=== PATIENT | male | born 1995 | race Caucasian/White ===

== ENCOUNTER 2016-11-05 22:18 | Emergency (ER) | payer BC ==
[~2016-11-05] VITALS: Ht 177.8 cm; Wt 79.4 kg
[2016-11-05] MEDS ORDERED: NKM (22:29)
[2016-11-05 22:33] VITALS: BP 140/89
[2016-11-05] MEDS ORDERED: AUGMENTIN 875-1 EAC1 ORAL (23:10)
[2016-11-05] MEDS ORDERED: IBUPROFEN600 MG ORAL (23:10)
[2016-11-05 23:15] VITALS: BP 132/84
[2016-11-05] MEDS ORDERED: Augmentin 875mg Tab ORAL ONE (23:15)
[2016-11-05] MEDS ORDERED: Ketorolac 60mg Inj IM ONE (23:15)
[2016-11-05 23:20] VITALS: BP 140/89
--- NOTE | 2016-11-05 23:43 | Emergency Room Report ---
History of Present Illness General Chief Complaint: Earache Source: Patient Present Illness HPI 21YOM walk-in with acute 1 day left ear pain after [place] [email or web address] Denies fever/chills, throat pain Doesnt use Qtips Denies headache, neck pain Denies frequent ear infections Allergies: Coded Allergies: No Known Allergies (Unverified , 11/05/16) Patient History Past Medical History: none Past Surgical History: none Pertinent Family History: none Social History: Denies: smoking, alcohol use, drug use Immunizations: UTD Reviewed Nursing Documentation: PMH: Agreed, PSxH: Agreed Nursing Documentation-PMH Past Medical History: No History, Except For Hx Cardiac Problems: No - PNA Review of Systems All Other Systems: negative except mentioned in HPI Physical Exam Vital Signs Date Time Temp Pulse Resp B/P (MAP) Pulse Ox O2 Delivery O2 Flow Rate FiO2 11/05/16 22:26 97.3 67 16 140/89 100 Room Air Sp02 EP Interpretation: reviewed, normal General Appearance: normal inspection, well appearing, no apparent distress, alert Head: atraumatic ENT: normal ENT inspection, hearing grossly normal, normal pharynx, no angioedema, normal voice, other - Multiple cerumen in both ears even after irrigation by tech. Unable to visualize TMs bilaterally Neck: normal inspection, full range of motion, supple, no bony tend Respiratory: normal inspection, lungs clear, normal breath sounds, no respiratory distress, no retraction, no wheezing Cardiovascular #1: regular rate, rhythm, no edema Gastrointestinal: normal inspection, normal bowel sounds, non tender, soft, no guarding, no hernia Genitourinary: no CVA tenderness Musculoskeletal: normal inspection, back normal, normal range of motion, Jean' s Sign negative Neurologic: normal inspection, alert, oriented x3, responsive, party plan sales unit advisor III-XII nml as tested, motor strength/tone normal, speech normal Psychiatric: normal inspection, judgement/insight normal, mood/affect normal Skin: normal inspection, normal color, no rash Medical Decision Making Diagnostic Impression: Primary Impression: Earache, left Additional Impression: Impacted cerumen of both ears ER Course Possible left otitis media from recent jacuzzi exposure Unable to visualize TMs d/t wax Was high pressure irrigated in ED Empiric Abx for possible otitis Rx given along with analgesia DC home Last Vital Signs Date Time Temp Pulse Resp B/P (MAP) Pulse Ox O2 Delivery O2 Flow Rate FiO2 11/05/16 23:20 97.3 67 16 140/89 100 Room Air Status: improved Disposition: HOME, SELF-CARE Condition: Improved Scripts Ibuprofen* (MOTRIN*) 600 Mg Tablet 600 MG ORAL THREE TIMES A DAY for earache, #30 TAB 0 Refills Prov: RADHA TOUSSAINT M.D. 11/05/16 Amoxicillin/Potassium Clav 875-125* (AUGMENTIN 875-125 TABLET*) 1 Each Tablet 1 TAB ORAL TWICE A DAY for 7 Days, #13 TAB Prov: RADHA TOUSSAINT M.D. 11/05/16 Referrals: NOT CHOSEN IPA/,REFERRING (PCP) Patient Instructions: Otitis Media, Adult, [id number] RADHA TOUSSAINT M.D. Nov 05, 2016 23:43
== END 2016-11-05 23:20 | disposition home or self-care (01) ==
LOC: EMR 22:50
DX: H61.23 Impacted cerumen, bilateral (principal)
CPT/HCPCS: 96372; 99284